=== PATIENT | male | born 1985 | race Caucasian/White ===

== ENCOUNTER → 2017-04-11 | Outpatient (CLI) | payer OTHER | LOC: LAB 23:24 | DX: Z02.83 Encounter for blood-alcohol and blood-drug test (principal) | CPT/HCPCS: 36415 ==

== ENCOUNTER 2021-06-15 12:57 | Emergency (ER) | payer OTHER ==
[~2021-06-15 12:57] MED LIST: LEVAQUIN750 MG PO; MEDROL DOSEPAK 24 MG PO
== END 2021-06-15 15:29 | disposition home or self-care (01) ==
LOC: ER1 12:57
DX: R21 Rash and other nonspecific skin eruption (principal); F17.210 Nicotine dependence, cigarettes, uncomplicated
CPT/HCPCS: 99282

== ENCOUNTER 2021-10-03 10:28 | Emergency (ER) | payer OTHER ==
[~2021-10-03] VITALS: Ht 167.6 cm; Wt 63.5 kg
[2021-10-03 11:39] LABS: HEMOGLOBIN 13.7 gm/dl (14.0-17.5); RED BLOOD COUNT 4.27 M/UL (4.20-5.50)
[2021-10-03 12:05] LABS: BUN/CREATININE RATIO 27 (0-10)
[2021-10-03] MEDS ORDERED: OMNICEF 300 MG300 MG PO (14:28)
== END 2021-10-03 14:42 | disposition home or self-care (01) ==
LOC: ER1 10:28 → CDU 13:46
PROVIDERS: Emergency Medicine
DX: J06.9 Acute upper respiratory infection, unspecified (principal); N39.0 Urinary tract infection, site not specified; Z20.822 Contact with and (suspected) exposure to COVID-19; Z86.59 Personal history of other mental and behavioral disorders
CPT/HCPCS: 71045; 80053; 81001; 82550; 82553; 83605; 83874; 84484; 85025; 87040; 87081; 87086; 87880; 93005; 96374; 99284; 99285; G0378; J0696; U0002

== ENCOUNTER 2022-03-21 07:57 | Emergency (ER) | payer OTHER ==
[~2022-03-21 07:57] MED LIST changes: +OMNICEF 300 MG300 MG PO
[2022-03-21 08:19] LABS: HEMOGLOBIN 12.3 gm/dl (14.0-17.5); RED BLOOD COUNT 3.95 M/UL (4.20-5.50); WHITE BLOOD COUNT 7.1 K/UL (4.5-11.0)
[2022-03-21 08:37] LABS: BUN/CREATININE RATIO 25 (0-10)
== END 2022-03-21 11:26 | disposition left against medical advice (07) ==
LOC: ER1 07:57
PROVIDERS: Physician Assistant
DX: R10.9 Unspecified abdominal pain (principal)
CPT/HCPCS: 80053; 81001; 85025; 99283; J1885; J2270; J2405

== ENCOUNTER 2022-06-04 12:07 | Emergency (ER) | payer OTHER ==
[2022-06-04 14:19] LABS: HEMOGLOBIN 13.2 gm/dl (14.0-17.5); RED BLOOD COUNT 4.22 M/UL (4.20-5.50); WHITE BLOOD COUNT 9.7 K/UL (4.5-11.0)
[2022-06-04 15:01] LABS: BUN/CREATININE RATIO 26 (0-10)
[2022-06-04] MEDS ORDERED: VIBRAMYCIN100 MG PO (15:13)
[2022-06-06 22:09] LABS: CHLAMYDIA TRACHOMATIS, NAA Negative (Negative); NEISSERIA GONORRHOEAE, NAA Positive (Negative)
== END 2022-06-04 15:30 | disposition home or self-care (01) ==
LOC: ER1 12:07
PROVIDERS: Physician Assistant
DX: N34.2 Other urethritis (principal); A64 Unspecified sexually transmitted disease; F17.210 Nicotine dependence, cigarettes, uncomplicated
CPT/HCPCS: 80053; 81001; 85025; 96374; 99283; J0696

== ENCOUNTER 2022-07-06 19:09 | Emergency (ER) | payer OTHER ==
[~2022-07-06 19:09] MED LIST changes: +VIBRAMYCIN100 MG PO
== END 2022-07-06 20:36 | disposition left against medical advice (07) ==
LOC: ER1 19:09
DX: Z53.21 Procedure and treatment not carried out due to patient leaving prior to being seen by health care provider (principal)